=== PATIENT | male | born 1995 | race African-American/Black ===

== ENCOUNTER 2017-06-08 12:31 | Emergency (ER) | payer BC, OTHER ==
[~2017-06-08] VITALS: Ht 190.5 cm; Wt 74.8 kg
[~2017-06-08 12:31] MED LIST: IBUPROFEN 800800 MG PO; NOHOMEMEDICATIONS; NORCO 5-325 TA1 EACH PO; TRAMADOL 50 MG50 MG PO; ZOFRAN4 MG PO
[2017-06-08 13:36] LABS: URINE BILIRUBIN NEGATIVE (Negative); URINE BLOOD NEGATIVE (Negative); URINE CLARITY CLEAR; URINE COLOR YELLOW; URINE GLUCOSE-RANDOM* NEGATIVE (Negative); URINE KETONES NEGATIVE (Negative); URINE LEUKOCYTES-REFLEX NEGATIVE (Negative); URINE NITRITE-REFLEX NEGATIVE (Negative); URINE PROTEIN (DIPSTICK) NEGATIVE (Negative); URINE UROBILINOGEN 0.2 E.U./dl (0.2-1.0)
== END 2017-06-08 14:12 | disposition home or self-care (01) ==
LOC: ER 12:31
PROVIDERS: Nurse Practitioner Family
DX: Z20.2 Contact with and (suspected) exposure to infections with a predominantly sexual mode of transmission (principal); N49.2 Inflammatory disorders of scrotum; F17.210 Nicotine dependence, cigarettes, uncomplicated; Z88.1 Allergy status to other antibiotic agents; Z88.8 Allergy status to other drugs, medicaments and biological substances

== ENCOUNTER 2017-11-20 05:01 | Emergency (ER) | payer BC, OTHER ==
[~2017-11-20] VITALS: Ht 193 cm; Wt 79.4 kg
[2017-11-20 05:56] VITALS: BP 121/63
== END 2017-11-20 06:10 | disposition home or self-care (01) ==
LOC: ER 05:01
PROVIDERS: Emergency Medicine
DX: N48.89 Other specified disorders of penis (principal); F17.210 Nicotine dependence, cigarettes, uncomplicated; Z88.1 Allergy status to other antibiotic agents; Z88.8 Allergy status to other drugs, medicaments and biological substances

== ENCOUNTER 2018-02-16 18:39 | Emergency (ER) | payer OTHER ==
[~2018-02-16] VITALS: Ht 193 cm; Wt 83.5 kg
[2018-02-16] MEDS ORDERED: NORFLEX100 MG PO (20:13)
[2018-02-16] MEDS ORDERED: NAPROSYN500 MG PO (20:13)
[2018-02-16 20:18] VITALS: BP 109/61
== END 2018-02-16 20:25 | disposition home or self-care (01) ==
LOC: ER 18:39
DX: S16.1XXA Strain of muscle, fascia and tendon at neck level, initial encounter (principal); S39.012A Strain of muscle, fascia and tendon of lower back, initial encounter; F17.210 Nicotine dependence, cigarettes, uncomplicated; Z88.1 Allergy status to other antibiotic agents; Z88.0 Allergy status to penicillin; V89.2XXA Person injured in unspecified motor-vehicle accident, traffic, initial encounter; Y92.89 Other specified places as the place of occurrence of the external cause; Y93.89 Activity, other specified; Y99.8 Other external cause status

== ENCOUNTER → 2018-07-11 | Outpatient (CLI) | payer BC, OTHER ==
[~2018-07-11] MED LIST changes: +NAPROSYN500 MG PO; +NORFLEX100 MG PO
== END ==
LOC: RAD 13:26
DX: G62.9 Polyneuropathy, unspecified (principal); R06.02 Shortness of breath; Z87.828 Personal history of other (healed) physical injury and trauma

== ENCOUNTER 2018-11-09 01:31 | Emergency (ER) | payer BC, OTHER ==
[~2018-11-09] VITALS: Ht 193 cm; Wt 88.5 kg
[2018-11-09] MEDS ORDERED: NAPROSYN500 MG PO (02:51)
[2018-11-09 03:20] VITALS: BP 133/72
== END 2018-11-09 03:20 | disposition home or self-care (01) ==
LOC: ER 01:31
DX: S39.012A Strain of muscle, fascia and tendon of lower back, initial encounter (principal); S20.212A Contusion of left front wall of thorax, initial encounter; F17.210 Nicotine dependence, cigarettes, uncomplicated; Z88.0 Allergy status to penicillin; Z88.8 Allergy status to other drugs, medicaments and biological substances; V89.2XXA Person injured in unspecified motor-vehicle accident, traffic, initial encounter; Y93.89 Activity, other specified; Y92.89 Other specified places as the place of occurrence of the external cause; Y99.8 Other external cause status

== ENCOUNTER 2020-02-17 08:11 | Emergency (ER) | payer BC, OTHER ==
[~2020-02-17] VITALS: Ht 193 cm; Wt 83.9 kg
[2020-02-17 08:12] VITALS: BP 109/64
[2020-02-17] MEDS ORDERED: IBUPROFEN 400400 M2 PO (09:55)
== END 2020-02-17 10:40 | disposition home or self-care (01) ==
LOC: ER 08:11
DX: K08.89 Other specified disorders of teeth and supporting structures (principal); F17.210 Nicotine dependence, cigarettes, uncomplicated; Z88.0 Allergy status to penicillin; Z88.8 Allergy status to other drugs, medicaments and biological substances

== ENCOUNTER 2020-05-01 20:51 | Emergency (ER) | payer BC, OTHER ==
[~2020-05-01] VITALS: Ht 193 cm; Wt 79.4 kg
[~2020-05-01 20:51] MED LIST changes: +IBUPROFEN 400400 M2 PO
[2020-05-01 21:45] VITALS: BP 97/43
== END 2020-05-01 21:46 | disposition home or self-care (01) ==
LOC: ER 20:51
DX: S01.81XA Laceration without foreign body of other part of head, initial encounter (principal); F17.210 Nicotine dependence, cigarettes, uncomplicated; Z88.0 Allergy status to penicillin; Z88.1 Allergy status to other antibiotic agents; Z88.8 Allergy status to other drugs, medicaments and biological substances; W18.39XA Other fall on same level, initial encounter; Y93.89 Activity, other specified; Y92.89 Other specified places as the place of occurrence of the external cause; Y99.8 Other external cause status

== ENCOUNTER → 2020-05-05 | Emergency (ER) | payer BC, OTHER | LOC: ER 16:53 | DX: Z48.02 Encounter for removal of sutures (principal); Z53.21 Procedure and treatment not carried out due to patient leaving prior to being seen by health care provider ==

== ENCOUNTER 2020-12-29 11:42 | Emergency (ER) | payer OTHER ==
[~2020-12-29] VITALS: Ht 193 cm; Wt 89.4 kg
[2020-12-29 12:10] VITALS: BP 130/69
[2020-12-29] MEDS ORDERED: MOBIC7.5 MG PO (13:04)
[2020-12-29] MEDS ORDERED: MEDROLDOSEPACK PO (13:04)
== END 2020-12-29 13:43 | disposition home or self-care (01) ==
LOC: ER 11:42
PROVIDERS: Emergency Medicine
DX: R51.9 Headache, unspecified (principal); Z20.822 Contact with and (suspected) exposure to COVID-19; R05 Cough; F17.210 Nicotine dependence, cigarettes, uncomplicated; Z88.0 Allergy status to penicillin; Z88.1 Allergy status to other antibiotic agents

== ENCOUNTER 2021-02-28 15:18 | Inpatient (IN) | payer OTHER ==
[~2021-02-28] VITALS: Ht 193 cm; Wt 88.5 kg
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
[~2021-02-28 15:18] MED LIST changes: +MEDROLDOSEPACK PO; +MOBIC7.5 MG PO
[2021-02-28 15:27] VITALS: BP 133/73
[2021-02-28 15:45] LABS: ABSOLUTE NEUTROPHILS 2.2 thou/uL (1.4-8.2); BASOPHILS 0.8 % (0.0-2.0); EOSINOPHILS 1.1 % (0.0-3.0); HEMATOCRIT 41.2 % (42.0-52.0); LYMPHOCYTES 35.1 % (24.0-44.0); MCH 31.5 pg (26.0-34.0); MCHC 33.9 g/dL (28.0-37.0); MCV 93.2 fL (80.0-100.0); MONOCYTES 10.1 % (1.0-8.0); PLATELET COUNT 157 thou/uL (150-400); POLYS 52.9 % (36.0-66.0); RBC 4.42 mil/uL (4.50-6.00); RDW 13.6 % (10.5-14.5); WBC 4.2 thou/uL (4.0-11.0)
[2021-02-28 15:59] LABS: APTT 29.9 Seconds (24.5-32.8); PROTIME 10.9 Seconds (10.5-12.1)
[2021-02-28 16:07] LABS: CALCIUM 8.7 mg/dL (8.5-10.1); CREATININE 1.1 mg/dL (0.7-1.3); POTASSIUM 3.6 mmol/L (3.5-5.1)
[2021-02-28 16:12] LABS: ALBUMIN 3.8 g/dL (3.4-5.0); DIRECT BILIRUBIN 0.2 mg/dL (<0.1-0.2); TOTAL BILIRUBIN 0.7 mg/dL (0.2-1.0)
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
[2021-02-28 20:53] VITALS: BP 117/70
[2021-02-28 22:12] VITALS: BP 115/75
--- NOTE | 2021-03-01 02:32 | NUR ---
PT WAS ADMITTED TO THE UNIT FROM THE ER IN A STABLE CONDITION.SOFT C COLLAR BRACE IN PLACE ON ADMIT.PT C/O NECK PAIN,DR NASCIMENTO NOTIFIED,ORDER NOTED AND CARRIED OUT.ADMISSION HX,EDUCATION AND ASSESMENT COMPLETED.PT EDUCATED TO USE THE CALL LIGHT FOR ASSISTANCE.PT RESTING ON HIS BED AT THIS TIME.CALL LIGHT WITHIN REACH.
[2021-03-01 08:20] VITALS: BP 112/69
[2021-03-01 16:10] VITALS: BP 121/79
--- NOTE | 2021-03-01 18:29 | NUR ---
ASSUMED PT CARE AT 1100 FROM NIGHT NURSE. PT IS ALERT & ORIENTED X4. PT IS UP AD WILL AND USES CANE. PT HAS IV SITES ON LAC AND RAC SALINE LOCKED. PT HAS SOFT C-COLLAR. PT C/O OF PAIN AND NUMBNESS AND TINGLING ON L LEG AND FOOT. PT IS ON ROOM AIR. EDUCATED HOSPITAL POLICY REGARDING NO SMOKING OUTSIDE THE HOSPITAL AND NO KIDS ALLOWED ON THE FLOOR. PT FAMILY WAS AT THE BEDSIDE. ORDERED NICOTINE PATCH AND PLACED IT ON L ARM. PT ON THE BED, BED ON THE LOWEST POSITION, SIDE RAILS UP, CALL LIGHT WITHIN REACH. WILL CONTINUE TO MONITOR PT. FOLLOW POC.
[2021-03-01 20:04] VITALS: BP 122/80
[2021-03-02 04:00] VITALS: BP 109/69
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
--- NOTE | 2021-03-02 07:30 | EKG ---
[place] [address] [facility] [place] [address] ELECTROCARDIOGRAM REPORT Name: FELICIA BUNDY Room #: 438-P ADM IN .R.#: [id number] Admission: 02/28/21 Attend Phys: Davi Newberry, Discharge: Date of : [birth year] Report #: [id number] [facility] ED Test Date: 2021-02-28 Test Time: 15:39:36 Pat Name: FELICIA BUNDY Department: Room: [facility] Gender: M External Relations Manager: KAR : 1995 Requested By: Nga Nicole Order Number: [id number] MD: Cory Schmitz Measurements Intervals [place] Rate: 59 P: 79 WY: 123 QRS: 78 QRSD: 97 T: 48 QT: 384 QTc: 381 Interpretive Statements Sinus rhythm J Point elev, probable normal early repol pattern No previous ECG available for comparison Electronically Signed On 03-02-2021 7:30:34 CDT by Cory Schmitz [email or web address] <ELECTRONICALLY SIGNED> By: Cory Schmitz MD, [facility] 03/02/21 0730 [id number] Cory Schmitz MD, FACC /EPI
[2021-03-02 08:02] VITALS: BP 100/52
--- NOTE | 2021-03-02 09:54 | NUR ---
Assumed care of pt at 0700. Pt a&o4. C/o pain and spasms from neck area. Neck collar on. Pt states he will have an MRI today. MRI not scheduled. Will check with doctor. Call light within reach. Will continue to monitor.
[2021-03-02 15:47] VITALS: BP 123/84
[2021-03-02 19:17] VITALS: BP 119/78
--- NOTE | 2021-03-03 03:05 | NUR ---
PT IS A/O X4 AND IS UP AD WILL. C-COLLAR APPLIED TO NECK. ROOM AIR. VSS AFEBRILE. NO CALL FROM DOCTOR TO DISCHARGE. PT IS PLEASANT AND COOPERATIVE WITH CARES. CALLS OUT APPROPRIATELY FOR ASSISTANCE. C/O NECK PAIN. PRN PAIN MEDICATION GIVEN DIRECTED. PT IS PROGRESSING TOWARDS PLAN OF CARE DC GOALS.
[2021-03-03 04:23] VITALS: BP 109/59
[2021-03-03 08:10] VITALS: BP 124/69
--- NOTE | 2021-03-03 09:59 | NUR ---
Assumed care of pt at 0700. Pt a&ox4. Pain controlled. Cleared to remove neck collar. Pt will discharge to home today. Call light within reach.
[2021-03-03 10:00] VITALS: BP 124/69
== END 2021-03-03 10:34 | disposition home or self-care (01) | DRG 552 ==
LOC: ER 15:18 → EROBS 19:44 → 4S 20:44
PROVIDERS: Emergency Medicine; ADMIT Surgery; ATTEND Surgery
DX: M54.2 Cervicalgia (principal); F17.210 Nicotine dependence, cigarettes, uncomplicated; F12.90 Cannabis use, unspecified, uncomplicated; M54.9 Dorsalgia, unspecified; Z88.1 Allergy status to other antibiotic agents; Z88.0 Allergy status to penicillin; Z88.8 Allergy status to other drugs, medicaments and biological substances; R20.2 Paresthesia of skin; V89.2XXA Person injured in unspecified motor-vehicle accident, traffic, initial encounter; Y93.89 Activity, other specified; Y92.89 Other specified places as the place of occurrence of the external cause; Y99.8 Other external cause status
CPT/HCPCS: 10195